=== PATIENT | female | born 1985 | race Caucasian/White ===

== ENCOUNTER 2020-10-31 17:55 | Emergency (ER) | payer OTHER ==
[~2020-10-31] VITALS: Ht 172.7 cm; Wt 97.5 kg
[2020-10-31] MEDS ORDERED: BUSPAR30 MG PO (18:12)
[2020-10-31] MEDS ORDERED: WELLBUTRIN SR150 M1 PO (18:12)
[2020-10-31] MEDS ORDERED: ASA81BEC PO (18:12)
[2020-10-31 18:35] VITALS: BP 178/117
== END 2020-10-31 18:36 | disposition home or self-care (01) ==
LOC: M.ERS 17:55
DX: R06.00 Dyspnea, unspecified (principal); R42 Dizziness and giddiness; Z88.6 Allergy status to analgesic agent; Z88.5 Allergy status to narcotic agent